=== PATIENT | male | born 1995 | race Caucasian/White ===

== ENCOUNTER 2017-11-24 14:33 | Emergency (ER) | payer MEDICAID ==
[2017-11-24] MEDS: DIPHTH/TET/ACEL PERTUSS (ADULT) 0.5 ML VIAL IM* (17:22)
== END 2017-11-24 17:40 | disposition home or self-care (01) ==
LOC: FTE 14:33
DX: S99.922A Unspecified injury of left foot, initial encounter (principal); W45.0XXA Nail entering through skin, initial encounter; Y92.9 Unspecified place or not applicable; Z23 Encounter for immunization
CPT/HCPCS: 90471; 90715; 99283-25